=== PATIENT | male | born 1975 | race African-American/Black ===

== ENCOUNTER 2018-01-01 02:21 | Emergency (ER) | payer MEDICAID ==
[~2018-01-01] VITALS: Ht 167.6 cm; Wt 122.3 kg
[2018-01-01 02:24] VITALS: BP 130/75
== END 2018-01-01 03:06 | disposition home or self-care (01) ==
LOC: ED 03:00
DX: K08.89 Other specified disorders of teeth and supporting structures (principal)
CPT/HCPCS: 99283

== ENCOUNTER 2018-07-19 03:00 | Emergency (ER) | payer MEDICAID ==
[~2018-07-19] VITALS: Ht 167.6 cm; Wt 127.0 kg
[2018-07-19 03:01] VITALS: BP 136/85
[2018-07-19] MEDS ORDERED: KETOROLAC 30 MG/1 ML ONE (03:44)
[2018-07-19] MEDS ORDERED: KETOROLAC 30 MG/1 ML IM ONE (04:00)
== END 2018-07-19 04:22 | disposition home or self-care (01) ==
LOC: ED 04:05
DX: K02.9 Dental caries, unspecified (principal)
CPT/HCPCS: 99283